=== PATIENT | female | born 1995 | race African-American/Black ===

== ENCOUNTER 2021-11-22 17:38 | Emergency (ER) | payer MEDICAID ==
[2021-11-22 19:29] LABS: HEMOGLOBIN 9.6 gm/dl (12.3-15.3); RED BLOOD COUNT 4.06 M/UL (4.00-5.10); WHITE BLOOD COUNT 4.7 K/UL (4.5-11.0)
[2021-11-22 19:54] LABS: BUN/CREATININE RATIO 14 (0-10)
== END 2021-11-22 21:07 | disposition home or self-care (01) ==
LOC: ER1 17:38
PROVIDERS: Physician Assistant Medical
DX: O99.891 Other specified diseases and conditions complicating pregnancy (principal); R10.9 Unspecified abdominal pain; R10.817 Generalized abdominal tenderness; R11.0 Nausea; Z3A.01 Less than 8 weeks gestation of pregnancy
CPT/HCPCS: 76817; 80053; 81001; 84702; 85025; 99284

== ENCOUNTER 2021-12-05 08:06 | Emergency (ER) | payer BC ==
[2021-12-05 08:54] LABS: RED BLOOD COUNT 4.33 M/UL (4.00-5.10)
[2021-12-05 09:18] LABS: BUN/CREATININE RATIO 11 (0-10)
== END 2021-12-05 11:06 | disposition home or self-care (01) ==
LOC: ER1 08:06
PROVIDERS: Physician Assistant
DX: O99.891 Other specified diseases and conditions complicating pregnancy (principal); M62.838 Other muscle spasm; Z3A.01 Less than 8 weeks gestation of pregnancy
CPT/HCPCS: 80053; 81001; 84439; 84443; 85025; 99284

== ENCOUNTER 2022-03-03 17:32 | Emergency (ER) | payer OTHER ==
[2022-03-03 18:16] LABS: RED BLOOD COUNT 4.06 M/UL (4.00-5.10); WHITE BLOOD COUNT 6.1 K/UL (4.5-11.0)
[2022-03-03 18:46] LABS: BUN/CREATININE RATIO 14 (0-10)
== END 2022-03-03 18:50 | disposition home or self-care (01) ==
LOC: ER1 17:32
PROVIDERS: Nurse Practitioner
DX: O21.9 Vomiting of pregnancy, unspecified (principal); Z3A.19 19 weeks gestation of pregnancy
CPT/HCPCS: 80053; 81001; 85025; 87086; 99283